=== PATIENT | female | born 1990 ===

== ENCOUNTER 2018-09-23 17:47 | Emergency (ER) | payer SELFPAY ==
[2018-09-23 17:58] VITALS: RESP 18; TEMP 97.9
--- NOTE | 2018-09-23 18:31 | C.PDOC ---
History Of Present Illness 27 y/o female presents to the ED complaining of intermittent vaginal spotting and abdominal cramping going on for 1 week. Patient is G1 female. She also reports cramping when urinating. Patient states she had a fever 1 week ago, whic h resolved. No other associated complaints. Time Seen by Provider: 09/23/18 18:07 Chief Complaint (Nursing): Female Genitourinary History Per: Patient History/Exam Limitations: no limitations Onset/Duration Of Symptoms: Days Current Symptoms Are (Timing): Still Present Quality Of Discomfort: Cramping Associated Symptoms: Urinary Symptoms. denies: Nausea, Vomiting, Diarrhea Past Medical History Reviewed: Historical Data, Nursing Documentation, Vital Signs Vital Signs: Last Vital Signs Temp 97.9 F 09/23/18 17:51 Pulse 80 09/23/18 17:51 Resp 18 09/23/18 17:51 BP 99/68 L 09/23/18 17:51 Pulse Ox 100 09/23/18 17:51 - Medical History PMH: No Chronic Diseases Surgical History: No Surg Hx Family History: States: Unknown Family Hx - Social History Hx Tobacco Use: No Hx Alcohol Use: No Hx Substance Use: No - Immunization History Hx Tetanus Toxoid Vaccination: No Hx Influenza Vaccination: No Hx Pneumococcal Vaccination: No Review Of Systems Except As Marked, All Systems Reviewed And Found Negative. Constitutional: Negative for: Fever, Chills Cardiovascular: Negative for: Light Headedness Gastrointestinal: Positive for: Abdominal Pain. Negative for: Nausea, Vomiting, Diarrhea Genitourinary: Positive for: Dysuria, Vaginal Bleeding. Negative for: Frequency, Incontinence Neurological: Negative for: Dizziness Physical Exam - Physical Exam Appears: Non-toxic, No Acute Distress Skin: Warm, Dry Head: Atraumatic, Normacephalic Eye(s): bilateral: Normal Inspection, PERRL, EOMI Oral Mucosa: Moist Neck: Normal ROM Chest: Symmetrical Respiratory: No Accessory Muscle Use, Other (NARD) Gastrointestinal/Abdominal: Soft, No Tenderness, No Distention, No Guarding Back: Normal Inspection, No CVA Tenderness Extremity: Bilateral: Atraumatic, Normal Color And Temperature, Normal ROM Pulses: Left Radial: Normal, Right Radial: Normal Neurological/Psych: Oriented x3, Normal Speech, Normal Cranial Nerves ED Course And Treatment - Laboratory Results Result Diagrams: 09/23/18 17:30 09/23/18 17:30 O2 Sat by Pulse Oximetry: 100 (RA) Pulse Ox Interpretation: Normal - CT Scan/US Pelvic US Other Rad Studies (CT/US): Read By Radiologist, Radiology Report Reviewed CT/US Interpretation: Name:ANNA MARIE MORFIN Exam Date:Sep 23, 2018 7:19:00 PM EST. Modality Type:SD\US\OT\ID\SR. Description:US - OB 1ST TRIMESTER. Gender:F Laterality:Not applicable. :92 Referring Physician:Frieda Saleem MD. History. Spotting. Comparison. None available. Findings. Uterus. Single live intrauterine gestation. CRL equivalent to 6 wks/3 days gestation. Gestational sac diameter equivalent to 6 wks/2 days gestation. Yolk sac measures 0.32 cm. pole identified. Heart rate: 122 bpm. Small subchorionic hemorrhage measures 2.1 x 1.7 x 1.3 cm. Uterus measures 7.5 x 4.5 x 5.2 cm and retroverted. No mass. Cervix. Long and closed measuring 3.1 cm. No cervical abnormality seen. Right Ovary. Measures 3 x 2.3 x 2.7 cm. No mass. Normal flow. Corpus luteal cyst measures 1.8 x 1.6 x 1.5 cm. Left Ovary. Measures 3.1 x 1.5 x 2.9 cm. No mass. Normal flow. Free Fluid. None. Other Findings. None. Impression. 1. Single live intrauterine gestation. 2. Small subchorionic hemorrhage. 3. Right ovarian corpus luteal cyst. . Electronically signed on Sep 23, 2018 9:15:41 PM EST by: Minh Kessler M.D., MELCHOR Certified By ABR & CBC[facility]. Fellowship Trained MRI and CT Specialist Medical Decision Making Medical Decision Making: Plan: Blood work and urine sent to the lab. Pending Transvag/Pelvic [place] [address]. UA shows +blood, no infection. US shows live IUP, counseled patient regarding findings and diagnosis of threatened miscarriage. Disposition Counseled Patient/Family Regarding: Diagnosis, Need For Followup - Disposition Referrals: [facility] [Outside] [facility] [Outside] [facility] [Outside] Disposition: HOME/ ROUTINE Disposition Time: 21:17 Condition: GOOD Instructions: Threatened Miscarriage (DC) Forms: [employer] (Kiswahili) Print Language: GREEK - Clinical Impression Clinical Impression: Threatened miscarriage in early - Scribe Statement The provider has reviewed the documentation as recorded by the Betsy Terrell Provider Attestation: All medical record entries made by the Betsy were at my direction and personally dictated by me. I have reviewed the chart and agree that the record accurately reflects my personal performance of the history, physical exam, medical decision making, and the department course for this patient. I have also personally directed, reviewed, and agree with the discharge instructions and disposition.
[2018-09-23 18:40] LABS: BASO % 0.4 % (0.0-2.0); EOS # 0.1 K/uL (0.0-0.7); EOS % 1.5 % (0.0-4.0); HEMOGLOBIN 11.6 g/dL (11.0-16.0); LYMPH # 2.3 K/uL (1.0-4.3); LYMPH % 24.8 % (20.0-40.0); MEAN CELL VOLUME 80.8 fL (81.0-99.0); MEAN CORPUSCULAR HEMOGLOBIN 25.9 pg (27.0-31.0); MEAN CORPUSCULAR HGB CONC 32.1 g/dL (33.0-37.0); MEAN PLATELET VOLUME 7.8 fL (7.2-11.7); MONO # 0.9 K/uL (0.0-0.8); MONO % 9.7 % (0.0-10.0); NEUT % 63.6 % (50.0-75.0); NRBC % 0.1 % (0.0-2.0); RBC 4.49 Mil/uL (3.80-5.20); RED CELL DISTRIBUTION WIDTH 14.3 % (11.5-14.5); WHITE BLOOD COUNT 9.5 K/uL (4.8-10.8)
[2018-09-23 18:47] LABS: SQUAMOUS EPITHIAL 4 /hpf (0-5); URINE BILIRUBIN NEGATIVE (NEGATIVE); URINE BLOOD 3+ (NEGATIVE); URINE CLARITY Clear (Clear); URINE COLOR Yellow (YELLOW); URINE GLUCOSE (UA) NORMAL (Normal); URINE LEUKOCYTE ESTERASE NEG Leu/uL (Negative); URINE PROTEIN NEGATIVE (NEGATIVE); URINE UROBILINOGEN NORMAL mg/dL (0.2-1.0)
[2018-09-23 18:54] LABS: ALB/GLOB RATIO 1.3 (1.0-2.1); ALBUMIN 4.3 g/dL (3.5-5.0); ALT/SGPT 107 U/L (9-52); AST/SGOT 97 U/L (14-36); BLOOD UREA NITROGEN 14 mg/dL (7-17); CALCIUM 9.4 mg/dl (8.6-10.4); GFR NON-AFRICAN AMERICAN > 60
[2018-09-23 21:30] VITALS: BP 110/70; PULSE 74
--- NOTE | 2018-09-24 10:44 | US ---
Date of service: 09/23/2018 PROCEDURE: OB Pelvic Ultrasound HISTORY: VAG BLEED , R/O ECTOPIC LMP: 08/06/2018 suggesting 6 week 6 day gestation. COMPARISON: None available. FINDINGS: Transabdominal and transvaginal pelvic ultrasound was performed with longitudinal and transverse images submitted for interpretation. UTERUS: Gestational sac: Single intrauterine gestation. Heart rate: 122 bpm. age (Ultrasound estimated): 6 weeks 3 days based on mean crown-rump length measurement of 0.64 cm. Mean sac diameter measures 1.86 cm Mee-gestational hemorrhage: Trace subchorionic hemorrhage not excluded. Date of delivery (Ultrasound estimated) : 05/16/2019. Uterus measures 7.5 x 4.5 x 5.2 cm. Normal in size and appearance, retroverted. CERVIX: Measures 3.1 cm. Long and closed. No cervical abnormality seen. RIGHT OVARY: Measures 3.0 x 2.3 x 2.7 cm. No mass lesion. Normal flow. 1.8 x 1.6 x 1.5 cm complex cyst may represent a corpus luteum cyst in the right ovary. LEFT OVARY: Measures 2.1 x 1.5 x 2.9 cm. No solid mass. Normal flow. FREE FLUID: None. OTHER FINDINGS: None. IMPRESSION: A single viable intrauterine gestation is identified in utero with average ultrasonic age of 6 weeks 3 days which agrees with LMP derived dates as described above. Trace subchorionic cardiac hemorrhage is not excluded. Clinical and possible sonographic follow-up are advised. Right corpus luteum cyst suggested. Concordant preliminary report from [place], 09/23/2018 9:15 p.m..
[2018-09-27 07:18] VITALS: O2SAT 100
== END 2018-09-23 21:30 | disposition home or self-care (01) ==
LOC: C.ER 17:47
DX: O20.0 Threatened abortion (principal); Z3A.01 Less than 8 weeks gestation of pregnancy